=== PATIENT | female | born 1960 | race Caucasian/White ===

== ENCOUNTER 2017-10-03 11:51 | Day surgery (SDC) | payer MEDICARE, SELFPAY ==
[2017-10-03 12:15] VITALS: BP 158/46; PULSE 64; RESP 18; TEMP 37.1; O2SAT 100; BMI 39.8
--- NOTE | 2017-10-03 13:26 | RAD_ITS ---
STUDY: X-RAY - LUMBAR SPINE REASON FOR EXAM: Female, 57 years old. Caudal block. TECHNIQUE: 3 intraoperative view(s) of the lumbar spine were obtained. COMPARISON: None FINDINGS: Study demonstrates placement of needles in the region of the sacrum. Please refer to the operative report for further details. RAD/OR-[facility]/Epid Inj/Lum Sac/1st IMPRESSION: Caudal block in the OR. Electronically Signed: Luis Fernando Hall DO at 14:55 EDT Tel [phone], Service support ,
[2017-10-03] MEDS: Bupivacaine 0.25% 30 ML Vial (13:28)
[2017-10-03] MEDS: MethylPREDNISolone Acetate 80 MG/ML Vial (13:29)
[2017-10-03 13:35] VITALS: BP 116/59; BP 158/46; PULSE 64; RESP 16; TEMP 36.6; O2SAT 98
[2017-10-03 13:40] VITALS: BP 118/62; BP 158/46; PULSE 62; RESP 18; O2SAT 100
[2017-10-03 13:45] VITALS: BP 114/51; BP 158/46; PULSE 57; RESP 16; O2SAT 96
[2017-10-03 13:50] VITALS: BP 121/48; BP 158/46; PULSE 57; RESP 16; TEMP 37; O2SAT 98
[2017-10-03 14:09] VITALS: BP 158/46
--- NOTE | 2017-10-03 14:43 | PCM.OPRPT ---
Problem List (1) Radiculopathy of lumbosacral region Status: Chronic (2) Degeneration of lumbosacral intervertebral disc Status: Chronic Report of Operation Date of Procedure: 10/03/17 Pre-Operative Diagnosis: Lumbosacral radiculopathy, lumbosacral degenerative disc disease, lumbosacral spinal stenosis Post-Operative Diagnosis: Lumbosacral radiculopathy, lumbosacral degenerative disc disease, lumbosacral spinal stenosis Surgery/Procedure Performed:: Diagnostic/therapeutic caudal epidural steroid injection Description of Surgical Findings:: PROCEDURE: Diagnostic/therapeutic caudal epidural steroid injection PREOPERATIVE DIAGNOSIS: Lumbosacral radiculopathy, lumbosacral degenerative disc disease, lumbosacral spinal stenosis POSTOPERATIVE DIAGNOSIS: Sacral radiculopathy, lumbosacral degenerative disc disease, lumbosacral spinal stenosis ANESTHESIA: MAC COMPLICATIONS: None BLOOD LOSS: Minimal PROCEDURE IN DETAIL: History and physical today was reviewed. Risks and benefits of the procedure were explained. The patient understood, agreed to our procedure, and informed consent was obtained. IV inserted per routine protocol. The patient was taken to the operating room, placed in a prone position with a pillow positioned underneath the abdomen. The lower back and tailbone area was prepped and draped in a sterile fashion using iodine ?3 under fluoroscopy guidance on the lateral view the caudal space was identified the skin and subcutaneous tissue and size approximately 3 cc of 1% lidocaine using a 25-gauge regular needle under direct visualization fluoroscopy using the lateral approach using a 22-gauge 3-1/2 inch spinal needle the needle was advanced via the skin through the sacral hiatus, tip of the needle passed through the sacrococcygeal ligament advanced approximately S4 area after negative aspiration for blood or CSF a total of 3 cc of contrast were injected to confirm correct placement of the needle as well as cephalad spread the spread was followed to approximately L5 area after confirmation AP as well as lateral view repeated negative aspiration a total of 15 cc of preservative-free 0.125% Marcaine with 80 mg of the portal was injected easily. The needles were then removed intact. The patient experienced no signs or symptoms intrathecal, intravascular injection. The patient experienced no paraesthesia. The procedure was completed without any apparent difficult, any complication. The patient appeared to tolerate well. ASSESSMENT AND PLAN: This is a 57-year-old female with lumbosacral radiculopathy, lumbosacral degenerative disc disease, lumbosacral spinal stenosis status post diagnostic/therapeutic caudal epidural steroid injection. The patient will continue her current medications. The patient will follow in approximately 2 weeks for possible repeat of the procedure if indicated.
--- NOTE | 2017-10-03 14:46 | OP.PCM_ITS ---
Problem List (1) Radiculopathy of lumbosacral region Status: Chronic (2) Degeneration of lumbosacral intervertebral disc Status: Chronic Report of Operation Date of Procedure: 10/03/17 Pre-Operative Diagnosis: Lumbosacral radiculopathy, lumbosacral degenerative disc disease, lumbosacral spinal stenosis Post-Operative Diagnosis: Lumbosacral radiculopathy, lumbosacral degenerative disc disease, lumbosacral spinal stenosis Surgery/Procedure Performed:: Diagnostic/therapeutic caudal epidural steroid injection Description of Surgical Findings:: PROCEDURE: Diagnostic/therapeutic caudal epidural steroid injection PREOPERATIVE DIAGNOSIS: Lumbosacral radiculopathy, lumbosacral degenerative disc disease, lumbosacral spinal stenosis POSTOPERATIVE DIAGNOSIS: Sacral radiculopathy, lumbosacral degenerative disc disease, lumbosacral spinal stenosis ANESTHESIA: MAC COMPLICATIONS: None BLOOD LOSS: Minimal PROCEDURE IN DETAIL: History and physical today was reviewed. Risks and benefits of the procedure were explained. The patient understood, agreed to our procedure, and informed consent was obtained. IV inserted per routine protocol. The patient was taken to the operating room, placed in a prone position with a pillow positioned underneath the abdomen. The lower back and tailbone area was prepped and draped in a sterile fashion using iodine ?3 under fluoroscopy guidance on the lateral view the caudal space was identified the skin and subcutaneous tissue and size approximately 3 cc of 1 % lidocaine using a 25-gauge regular needle under direct visualization fluoroscopy using the lateral approach using a 22-gauge 3-1/2 inch spinal needle the needle was advanced via the skin through the sacral hiatus, tip of the needle passed through the sacrococcygeal ligament advanced approximately S4 area after negative aspiration for blood or CSF a total of 3 cc of contrast were injected to confirm correct placement of the needle as well as cephalad spread the spread was followed to approximately L5 area after confirmation AP as well as lateral view repeated negative aspiration a total of 15 cc of preservative-free 0.125% Marcaine with 80 mg of the portal was injected easily. The needles were then removed intact. The patient experienced no signs or symptoms intrathecal, intravascular injection. The patient experienced no paraesthesia. The procedure was completed without any apparent difficult, any complication. The patient appeared to tolerate well. ASSESSMENT AND PLAN: This is a 57-year-old female with lumbosacral radiculopathy, lumbosacral degenerative disc disease, lumbosacral spinal stenosis status post diagnostic/ therapeutic caudal epidural steroid injection. The patient will continue her current medications. The patient will follow in approximately 2 weeks for possible repeat of the procedure if indicated.
== END 2017-10-03 14:10 | disposition home or self-care (01) ==
LOC: SDC 11:52 → AC 11:55
PROVIDERS: Visit Provider Anesthesiology Pain Medicine
PROC: 3E0S3BZ Introduction of Anesthetic Agent into Epidural Space, Percutaneous Approach (ICD-10-PCS; CPT 62282; principal; 2017-10-03 13:45)
DX: M51.17 Intervertebral disc disorders with radiculopathy, lumbosacral region (principal); M47.27 Other spondylosis with radiculopathy, lumbosacral region; M48.07 Spinal stenosis, lumbosacral region; M79.1 Myalgia; G89.28 Other chronic postprocedural pain; G43.909 Migraine, unspecified, not intractable, without status migrainosus; E03.9 Hypothyroidism, unspecified; F32.9 Major depressive disorder, single episode, unspecified; I10 Essential (primary) hypertension; K21.9 Gastro-esophageal reflux disease without esophagitis; E78.00 Pure hypercholesterolemia, unspecified; Z79.51 Long term (current) use of inhaled steroids; Z79.891 Long term (current) use of opiate analgesic; Z79.899 Other long term (current) drug therapy
CPT/HCPCS: 01992; 62323; 64520; 64483; 77003; J7120

== ENCOUNTER 2018-01-02 08:47 | Day surgery (SDC) | payer MEDICARE, SELFPAY ==
[2018-01-02 09:02] VITALS: BP 114/62; PULSE 54; RESP 16; TEMP 36.3; O2SAT 99; BMI 40.1
[2018-01-02] MEDS: Sodium Citrate/Citric Acid 30 ML UDC PO (09:29)
[2018-01-02] MEDS: Pantoprazole Sodium 40 MG Tablet PO (09:29)
[2018-01-02] MEDS: MethylPREDNISolone Acetate 80 MG/ML Vial (09:56)
[2018-01-02] MEDS: Bupivacaine 0.25% 30 ML Vial (09:56)
[2018-01-02 10:04] VITALS: BP 106/57; BP 114/62; PULSE 57; RESP 16; TEMP 36.4; O2SAT 95
[2018-01-02 10:09] VITALS: BP 114/62; BP 95/53; PULSE 55; RESP 16; O2SAT 98
[2018-01-02 10:14] VITALS: BP 101/47; BP 114/62; PULSE 54; RESP 16; O2SAT 96
[2018-01-02 10:19] VITALS: BP 114/62; BP 99/55; PULSE 56; RESP 16; TEMP 36.4; O2SAT 99
[2018-01-02 10:23] VITALS: BP 114/62
--- NOTE | 2018-01-02 12:49 | PCM.OPRPT ---
Problem List (1) Degeneration of lumbosacral intervertebral disc Status: Chronic (2) Lumbosacral spondylosis Status: Chronic Report of Operation Date of Procedure: 01/02/18 Pre-Operative Diagnosis: Lumbosacral spondylosis, lumbosacral degenerative disc disease, lumbar facet arthropathy Post-Operative Diagnosis: Lumbosacral spondylosis, lumbosacral degenerative disc disease, lumbar facet arthropathy Surgery/Procedure Performed:: Right-sided lumbar facet steroid injection L3, L4, L5, S1 Description of Surgical Findings:: PROCEDURE: Right-sided lumbar facet steroid injection L3, L4, L5, S1 PREOPERATIVE DIAGNOSIS: Lumbosacral spondylosis, lumbosacral degenerative disc disease, lumbar facet arthropathy POSTOPERATIVE DIAGNOSIS: Lumbosacral spondylosis, lumbosacral degenerative disc disease, lumbar facet arthropathy ANESTHESIA: MAC COMPLICATIONS: None BLOOD LOSS: Minimal PROCEDURE IN DETAIL: History and physical today was reviewed. Risks and benefits of the procedure were explained. The patient understood, agreed to our procedure, and informed consent was obtained. IV inserted per routine protocol. The patient was taken to the operating room, placed in a prone position with a pillow positioned underneath the abdomen. The right side of her lower back was prepped and draped in a sterile fashion using iodine x3. Under fluoroscopy guidance, on AP view, L3 through S1 vertebral bodies were visualized. Skin and subcutaneous tissues were anesthetized with approximately 5 mL of 1% lidocaine using a 25-gauge regular needle. Under direct visualization with fluoroscopy at approximately 25-degree angle, starting on the right L3, ending on the right S1, passing through the L4-L5 using a 22-gauge 5-inch spinal needle, the needle was advanced via the skin. The tip of the needle was maneuvered and directed towards the superior and medial gutter of the transverse process at the vicinity of the medial branch. Once the tip of the needle was in contact with the bone, the needle pulled approximately 2 mm off the bone. After negative aspiration of blood with CSF and confirmation of AP as well as oblique view, a total of 8 mL of preservative-free 0.25% Marcaine with 80 mg of Depo-Medrol was injection in divided doses between those 4 levels. The needles were then removed intact. The patient experienced no signs or symptoms intrathecal, intravascular injection. The patient experienced no paraesthesia. The procedure was completed without any apparent difficult, any complication. The patient appeared to tolerate well. ASSESSMENT AND PLAN: This is a 57-year-old Female with Lumbosacral spondylosis, lumbosacral degenerative disc disease, lumbar facet arthropathy, status post right-sided lumbar facet steroid injection L3 through S1. The patient will continue her current medications. The patient will follow in approximately 2 weeks for possible repeat of the procedure if indicated.
== END 2018-01-02 10:52 | disposition home or self-care (01) ==
LOC: SDC 08:49 → AC 08:49
PROVIDERS: Visit Provider Anesthesiology Pain Medicine
PROC: 3E0T3BZ Introduction of Anesthetic Agent into Peripheral Nerves and Plexi, Percutaneous Approach (ICD-10-PCS; CPT 64493; principal; 2018-01-02 09:45)
DX: M47.817 Spondylosis without myelopathy or radiculopathy, lumbosacral region (principal); M51.37 Other intervertebral disc degeneration, lumbosacral region; M46.96 Unspecified inflammatory spondylopathy, lumbar region; I10 Essential (primary) hypertension; G43.909 Migraine, unspecified, not intractable, without status migrainosus; K21.9 Gastro-esophageal reflux disease without esophagitis; E78.00 Pure hypercholesterolemia, unspecified; F32.9 Major depressive disorder, single episode, unspecified; E06.9 Thyroiditis, unspecified; Z79.899 Other long term (current) drug therapy
CPT/HCPCS: 64493; 64494; 64495; 64483; 72100; J7120

== ENCOUNTER 2018-02-13 09:47 | Day surgery (SDC) | payer MEDICARE, SELFPAY ==
[2018-02-13 10:02] VITALS: BP 141/52; PULSE 56; RESP 16; TEMP 37; O2SAT 100; BMI 40.3
[2018-02-13] MEDS: MethylPREDNISolone Acetate 80 MG/ML Vial (11:27)
[2018-02-13] MEDS: Bupivacaine Mpf 0.5% 30 ML VIAL (11:28)
[2018-02-13 11:35] VITALS: BP 109/46; BP 141/52; PULSE 54; RESP 16; TEMP 36.5; O2SAT 99
[2018-02-13 11:40] VITALS: BP 108/50; BP 141/52; PULSE 58; RESP 16; O2SAT 98
--- NOTE | 2018-02-13 11:40 | RAD_ITS ---
STUDY: X-RAY - SACROILIAC JOINTS REASON FOR EXAM: Female, 57 years old. Left SI joint injection. TECHNIQUE: 2 coned-down view(s) of the sacroiliac joints were obtained intraoperatively. 11.4 seconds of fluoroscopy. COMPARISON: None. FINDINGS: A spinal needle is seen in the left SI joint. RAD/Fluoro Guided Needle Placement IMPRESSION: Fluoroscopic services provided for left SI joint injection. Electronically Signed: Burton Suero MD at 15:54 EDT Tel [phone], Service support ,
[2018-02-13 11:45] VITALS: BP 112/50; BP 141/52; PULSE 57; RESP 16; O2SAT 97
[2018-02-13 11:50] VITALS: BP 102/56; BP 141/52; PULSE 58; RESP 16; TEMP 36.2; O2SAT 100
--- NOTE | 2018-02-13 12:05 | PCM.OPRPT ---
Problem List (1) Sacroiliitis, not elsewhere classified Status: Chronic (2) Sacrococcygeal disorders, not elsewhere classified Status: Chronic Report of Operation Date of Procedure: 02/13/18 Pre-Operative Diagnosis: Sacroiliitis, sacroiliac joint dysfunction Post-Operative Diagnosis: Sacroiliitis, sacroiliac joint dysfunction Surgery/Procedure Performed:: Left-sided sacroiliac joint steroid injection under fluoroscopic guidance Description of Surgical Findings:: PROCEDURE: Left sacroiliac joint steroid injection under fluoroscopic guidance PREOPERATIVE DIAGNOSIS: Sacroiliitis, sacroiliac joint dysfunction POSTOPERATIVE DIAGNOSIS: Sacroiliitis, sacroiliac joint dysfunction ANESTHESIA: MAC COMPLICATIONS: None BLOOD LOSS: Minimal PROCEDURE IN DETAIL: History and physical today was reviewed. Risks and benefits of the procedure were explained. The patient understood, agreed to our procedure, and informed consent was obtained. IV inserted per routine protocol. The patient was taken to the operating room, placed in a prone position with a pillow positioned underneath the abdomen. The lower back and buttock area was prepped and draped in a sterile fashion using iodine ?3 no direct visualization of fluoroscopy at approximately 15? angle of the left sacroiliac joint were visualized skin and subcutaneous tissue were anesthetized approximately 5 cc of 1% lidocaine using a 25-gauge regular needle under direct visualization with fluoroscopy at approximately 15? angle starting on the left SI a 22-gauge 3-1/2 inch spinal needle the needle was advanced via the skin the tip of the knee was maneuvering directed towards the inferior one third of the posterior SI joint once the tip of the needle was at the vicinity of the joint after negative aspiration for blood or CSF a total of 1 cc of contrast were injected to confirm correct placement of the needle as well as cephalocaudad spread the confirmation was obtained on AP as well as oblique view after repeated negative aspiration and confirmation a total of 4 cc of preservative-free 0.25% Marcaine with 40 mg of Depo-Medrol were injected in and around the SI joint the needles were then removed intact. The patient experienced no signs or symptoms intrathecal, intravascular injection. The patient experienced no paraesthesia. The procedure was completed without any apparent difficult, any complication. The patient appeared to tolerate well. ASSESSMENT AND PLAN: This is a 57-year-old female with sacroiliitis, sacroiliac joint dysfunction status post left sacroiliac joint steroid injection under fluoroscopic guidance. The patient will continue her current medications. The patient will follow in approximately 2 weeks for possible repeat of the procedure if indicated.
[2018-02-13 12:31] VITALS: BP 141/52
== END 2018-02-13 12:32 | disposition home or self-care (01) ==
LOC: SDC 09:48 → AC 09:50
PROVIDERS: Visit Provider Anesthesiology Pain Medicine
PROC: 3E0U3GC Introduction of Other Therapeutic Substance into Joints, Percutaneous Approach (ICD-10-PCS; CPT 27096; principal; 2018-02-13 11:35)
DX: M46.1 Sacroiliitis, not elsewhere classified (principal); M53.3 Sacrococcygeal disorders, not elsewhere classified; M47.27 Other spondylosis with radiculopathy, lumbosacral region; M51.17 Intervertebral disc disorders with radiculopathy, lumbosacral region; M46.96 Unspecified inflammatory spondylopathy, lumbar region; G89.29 Other chronic pain; G43.909 Migraine, unspecified, not intractable, without status migrainosus; E03.9 Hypothyroidism, unspecified; F32.9 Major depressive disorder, single episode, unspecified; I10 Essential (primary) hypertension; K21.9 Gastro-esophageal reflux disease without esophagitis; E78.00 Pure hypercholesterolemia, unspecified; Z79.891 Long term (current) use of opiate analgesic; Z79.899 Other long term (current) drug therapy
CPT/HCPCS: 27096; 76000; 77002; J7120; J3490

== ENCOUNTER 2018-10-02 09:29 | Day surgery (SDC) | payer MEDICARE, SELFPAY ==
[2018-10-02] VITALS (7 sets, daily range): BP systolic 117–141; BP diastolic 53–71; PULSE 48–58; RESP 12–16; TEMP 36.3–36.9; O2SAT 92–99; BMI 40.7
--- NOTE | 2018-10-02 10:40 | RAD_ITS ---
PROCEDURE: Caudal block. DATE OF EXAMINATION: October 02, 2018. INDICATION: Female, 58 years old. Chronic low back pain. FLUOROSCOPY TIME (if supplied): (0:16) minutes/seconds. 2 intraoperative views were obtained. Intraoperative imaging provided for caudal block. RAD/Fluor Guidance for Spine Inj IMPRESSION: Intraoperative imaging provided for caudal block. Electronically Signed: Burton Suero, at 11:26 EDT , Service support ,
[2018-10-02] MEDS: Bupivacaine 0.25% 30 ML Vial (10:56)
[2018-10-02] MEDS: MethylPREDNISolone Acetate 80 MG/ML Vial (10:56)
--- NOTE | 2018-10-02 13:00 | PCM.OPRPT ---
Problem List (1) Degeneration of lumbosacral intervertebral disc Status: Chronic (2) Radiculopathy of lumbosacral region Status: Chronic Report of Operation Date of Procedure: 10/02/18 Pre-Operative Diagnosis: Lumbosacral radiculopathy, lumbosacral degenerative disc disease, lumbosacral spinal stenosis Post-Operative Diagnosis: Lumbosacral radiculopathy, lumbosacral degenerative disc disease, lumbosacral spinal stenosis Surgery/Procedure Performed:: Caudal epidural steroid injection Description of Surgical Findings:: PROCEDURE: caudal epidural steroid injection PREOPERATIVE DIAGNOSIS: Lumbosacral radiculopathy, lumbosacral degenerative disc disease, lumbosacral spinal stenosis POSTOPERATIVE DIAGNOSIS: Lumbosacral radiculopathy, lumbosacral degenerative disc disease, lumbosacral spinal stenosis ANESTHESIA: MAC COMPLICATIONS: None BLOOD LOSS: Minimal PROCEDURE IN DETAIL: History and physical today was reviewed. Risks and benefits of the procedure were explained. The patient understood, agreed to our procedure, and informed consent was obtained. IV inserted per routine protocol. The patient was taken to the operating room, placed in a prone position with a pillow positioned underneath the abdomen. The lower back area was prepped and draped in a sterile fashion using iodine x3 under fluoroscopy guidance on the lateral view the caudal space was identified the skin and subcutaneous tissue and size approximately 3 cc of 1% lidocaine using a 25-gauge regular needle under direct visualization fluoroscopy using a 22-gauge 3-1/2 inch spinal needle the needle was advanced via the skin through the sacral hiatus tip of the needle passed through the sacrococcygeal ligament advanced approximately S4 area after negative aspiration for blood or CSF a total of 3 cc of contrast were injected to confirm correct placement of the needle as well as cephalad spread the spread was followed to approximately L5 area after negative aspiration for blood or CSF and confirmation AP as well as lateral view a total of 15 cc of preservative-free 0.125% Marcaine with 80 mg of Depo-Medrol were injected easily. The needles were then removed intact. The patient experienced no signs or symptoms intrathecal, intravascular injection. The patient experienced no paraesthesia. The procedure was completed without any apparent difficult, any complication. The patient appeared to tolerate well. ASSESSMENT AND PLAN: This is a 58-year-old female with lumbosacral radiculopathy, lumbosacral degenerative disc disease, lumbosacral spinal stenosis status post caudal epidural steroid injection. The patient will continue her current medications. The patient will follow in approximately 2 weeks for reevaluation.
== END 2018-10-02 11:43 | disposition home or self-care (01) ==
LOC: SDC 09:34 → AC 11:41
PROVIDERS: Referring Provider Anesthesiology Pain Medicine; Visit Provider Anesthesiology Pain Medicine
PROC: 3E0S3BZ Introduction of Anesthetic Agent into Epidural Space, Percutaneous Approach (ICD-10-PCS; CPT 62282; principal; 2018-10-02 10:35)
DX: M51.17 Intervertebral disc disorders with radiculopathy, lumbosacral region (principal); M48.07 Spinal stenosis, lumbosacral region; M47.27 Other spondylosis with radiculopathy, lumbosacral region; E03.9 Hypothyroidism, unspecified; F32.9 Major depressive disorder, single episode, unspecified; K21.9 Gastro-esophageal reflux disease without esophagitis; E78.00 Pure hypercholesterolemia, unspecified; F41.9 Anxiety disorder, unspecified; I10 Essential (primary) hypertension; Z79.891 Long term (current) use of opiate analgesic; Z79.899 Other long term (current) drug therapy
CPT/HCPCS: 01992; 62323; 64520; 64483; 77003; J7120; J3490